=== PATIENT | female | born 1935 | race Caucasian/White ===

== ENCOUNTER 2018-08-31 17:56 | Inpatient (IN) ==
[2018-08-31] MEDS ORDERED: ASPIRIN 325 MG TABLET PO STA (19:53)
[2018-08-31] MEDS ORDERED: ONDANSETRON 4 MG/2 ML VIAL IV STA (19:53)
[2018-08-31 21:23] LABS: Basophils # 0.1 10*3/uL (0.0-0.2); Eosinophils # 0.2 10*3/uL (0.0-0.87); Hematocrit 36.9 VOL% (35.7-47.0); Hemoglobin 11.9 GM/DL (12.0-16.0); Immature Granulocytes % 0.5 %; Immature Granulocytes Absolute 0.03 #; Lymphocytes # 1.7 10*3/uL (1.4-4.0); Lymphocytes % 26.5 % (21.3-54.2); Mean Corpuscular HGB Conc 32.2 GM/DL (32-36); Mean Corpuscular Volume 95.6 FL (87-102); Mean Platelet Volume 12.1 FL (9.6-12.0); Monocytes % 9.6 % (1.7-12.7); Neutrophils % 59.4 % (38.7-73.9); Platelet Count 245 T/CUMM (130-400); Red Blood Count 3.86 MC/CUMM (3.8-5.5); Red Cell Distribution Width 12.8 % (9.3-17.3); White Blood Count 6.3 T/CUMM (4-12)
[2018-08-31 21:44] LABS: INR 0.9; PT Patient Result 9.7 SECS; Partial Thromboplastin Time 24.2 SECS (0-40)
[2018-08-31] MEDS ORDERED: CLOPIDOGREL 75 MG TABLET PO STA (21:47)
[2018-08-31 22:22] LABS: Calcium 8.8 MG/DL (8.5-10.1)
[2018-08-31 22:24] LABS: Albumin 3.5 G/DL (3.4-5.0); Blood Urea Nitrogen 22 MG/DL (7-18); Glucose 101 MG/DL (74-106); Osmolality,Calculated 288.8 MOS/KG (273-304)
[2018-08-31 22:27] LABS: Alanine Aminotransferase 22 U/L (13-56); Aspartate Amino Transferase 18 U/L (0-37)
[2018-08-31 22:30] LABS: Alkaline Phosphatase 87 U/L (45-117)
[2018-08-31] MEDS ORDERED: MORPHINE 4 MG/1 ML VIAL IV PRN (22:44)
[2018-08-31] MEDS ORDERED: ONDANSETRON 4 MG/2 ML VIAL IV PRN (22:44)
[2018-08-31] MEDS ORDERED: NICOTINE 21 MG/24 HR PATCH TRANSDERM PRN (22:44)
[2018-08-31] MEDS ORDERED: ACETAMINOPHEN 325 MG TABLET PO PRN (22:44)
[2018-09-01 00:49] LABS: Risk Ratio 3.67; Thyroid Stimulating Hormone 1.89 uIU/ml (0.358-3.74); VLDL CHOLESTEROL 31.8 MG/DL
[2018-09-01] MEDS: POTASSIUM CHLORIDE RIDER 10 MEQ in PREMIX 1 EACH IV PRN ×4 (00:55→04:07)
[2018-09-01 05:41] LABS: Basophils # 0.1 10*3/uL (0.0-0.2); Basophils % 0.7 % (0.0-0.8); Eosinophils # 0.1 10*3/uL (0.0-0.87); Eosinophils % 1.1 % (0.00-10.9); Hematocrit 37.1 VOL% (35.7-47.0); Hemoglobin 12.1 GM/DL (12.0-16.0); Immature Granulocytes % 0.2 %; Immature Granulocytes Absolute 0.02 #; Lymphocytes # 1.3 10*3/uL (1.4-4.0); Lymphocytes % 15.4 % (21.3-54.2); Mean Corpuscular HGB Conc 32.6 GM/DL (32-36); Mean Corpuscular Volume 93.7 FL (87-102); Neutrophils % 76.6 % (38.7-73.9); Platelet Count 214 T/CUMM (130-400); Red Blood Count 3.96 MC/CUMM (3.8-5.5); Red Cell Distribution Width 12.5 % (9.3-17.3); White Blood Count 8.3 T/CUMM (4-12)
[2018-09-01 06:11] LABS: Albumin 3.4 G/DL (3.4-5.0); Bilirubin,Total 1.2 MG/DL (0.2-1.0); Calcium 9.4 MG/DL (8.5-10.1); Osmolality,Calculated 285.1 MOS/KG (273-304); Total Protein 6.6 G/DL (6.4-8.3)
[2018-09-01] MEDS: LETROZOLE 2.5 MG TABLET PO SCH (13:55)
[2018-09-01] MEDS: METOPROLOL SUCCINATE XL 25 MG TABLET PO SCH (13:56)
[2018-09-01] MEDS: PANTOPRAZOLE 40 MG TABLET PO SCH (13:56)
[2018-09-01] MEDS: POTASSIUM CHLORIDE 10 MEQ TABLET PO SCH (13:56)
[2018-09-01] MEDS: hydroCHLOROthiazide 25 MG TABLET PO SCH (13:56)
[2018-09-01] MEDS: ENOXAPARIN 40 MG/0.4 ML SYRINGE SUBCUT SCH (14:47)
[2018-09-01 15:19] LABS: Apearance,Urine CLEAR (Clear); Bilirubin,Urine Negative (Negative); Blood, Urine Negative (Negative); Glucose,Urine (UA) Negative (Negative); Hyaline Casts,Urine 3 /LPF (0-3); Ketones,Urine 20 mg/dL (Negative); Mucus,Urine Occasional /LPF (Occasional); Nitrite,Urine Negative (Negative); Protein,Urine Negative; RBC,Urine <1 /HPF (0-4); Urine Color Yellow (Yellow); Urine Specific Gravity 1.016 (1.001-1.035); Urine Urobilinogen < 2.0 EU/DL (0.2-1.0)
[2018-09-01 15:22] LABS: Barbiturates Screen,Urine Negative (Negative); Benzodiazepines Screen,Urine Negative (Negative); Cannabinoid Screen,Urine Negative (Negative); Opiate Screen,Urine Negative (Negative); Phencyclidine Screen,Urine Negative (Negative)
[2018-09-01] MEDS: DEXT 5% NACL 0.45% KCL 10 MEQ 10 MEQ/1,000 ML BAG IV SCH (18:15)
[2018-09-01 23:18] LABS: ABG Base Excess 1.4 MMOL/L (-2.5-2.5); ABG HCO3 25.6 MMOL/L (20-26); ABG Oxygen Saturation 96.3 % (95-100); ABG PCO2 38.4 MM HG (35-48); ABG PH 7.431 (7.35-7.45); ABG PO2 78.2 MM HG (80-95); ABG TCO2 22.5 MMOL/L (23-27)
[2018-09-02 00:35] LABS: Barbiturates Screen,Urine Negative (Negative); Benzodiazepines Screen,Urine Negative (Negative); Cannabinoid Screen,Urine Negative (Negative); Opiate Screen,Urine Negative (Negative); Phencyclidine Screen,Urine Negative (Negative)
[2018-09-02] MEDS: DEXT 5% NACL 0.45% KCL 10 MEQ 10 MEQ/1,000 ML BAG IV SCH ×2 (04:38→16:04)
[2018-09-02] MEDS ORDERED: hydrALAZINE 20 MG/1 ML VIAL IV ONE (04:48)
[2018-09-02] MEDS ORDERED: ASPIRIN 300 MG SUPP RECTAL SCH (09:00)
[2018-09-02] MEDS: ENOXAPARIN 40 MG/0.4 ML SYRINGE SUBCUT SCH (09:12)
[2018-09-02 11:50] VITALS: BP 139/57
[2018-09-02] MEDS: hydroCHLOROthiazide 25 MG TABLET PO SCH (14:39)
[2018-09-02] MEDS: POTASSIUM CHLORIDE 10 MEQ TABLET PO SCH (14:40)
[2018-09-02] MEDS: PANTOPRAZOLE 40 MG TABLET PO SCH (14:40)
[2018-09-02] MEDS: METOPROLOL SUCCINATE XL 25 MG TABLET PO SCH (14:41)
[2018-09-02] MEDS: LETROZOLE 2.5 MG TABLET PO SCH (14:42)
[2018-09-02] MEDS ORDERED: APIXABAN 2.5 MG TABLET PO SCH (21:00)
[2018-09-02] MEDS ORDERED: ATORVASTATIN 20 MG TABLET PO SCH (21:00)
[2018-09-02] MEDS ORDERED: ATORVASTATIN 40 MG TABLET PO SCH (21:00)
== END 2018-09-02 16:14 | DRG 65 ==
LOC: N.EDINP 17:56 → N.ED 17:56 → N.2E 23:32
PROVIDERS: ADMIT Internal Medicine; ATTEND Internal Medicine

== ENCOUNTER 2020-04-19 18:24 | Inpatient (IN) ==
[2020-04-19 20:44] LABS: Basophils % 0.6 % (0.0-0.8); Eosinophils # 0.1 10*3/uL (0.0-0.87); Eosinophils % 1.2 % (0.00-10.9); Hematocrit 24.1 VOL% (35.7-47.0); Hemoglobin 7.1 GM/DL (12.0-16.0); Immature Granulocytes % 0.4 %; Immature Granulocytes Absolute 0.03 #; Lymphocytes # 1.6 10*3/uL (1.4-4.0); Mean Corpuscular HGB Conc 29.5 GM/DL (32-36); Mean Corpuscular Volume 86.1 FL (87-102); Mean Platelet Volume 11.2 FL (9.6-12.0); Monocytes % 10.2 % (1.7-12.7); Neutrophils % 63.6 % (38.7-73.9); Platelet Count 371 T/CUMM (130-400); Red Cell Distribution Width 15.2 % (9.3-17.3); White Blood Count 6.8 T/CUMM (4-12)
[2020-04-19 20:56] LABS: PT Patient Result 10.3 SECS (9.8-11.9); Partial Thromboplastin Time 22.7 SECS (23.9-33.8)
[2020-04-19 21:11] LABS: Alanine Aminotransferase 20 U/L (13-56); Albumin 2.9 G/DL (3.4-5.0); Alkaline Phosphatase 112 U/L (45-117); Aspartate Amino Transferase 20 U/L (0-37); Bilirubin,Total < 0.39 MG/DL (0.2-1.0); Blood Urea Nitrogen 18 MG/DL (7-18); Calcium 8.5 MG/DL (8.5-10.1); Carbon Dioxide 31 MMOL/L (21-32); Estimated Glom Filtration Rate 60 ML/MIN; Glucose 88 MG/DL (74-106); Osmolality,Calculated 283.1 MOS/KG (273-304); Potassium 2.8 MMOL/L (3.5-5.1); Sodium 142 MMOL/L (136-145); Total Protein 6.4 G/DL (6.4-8.3)
[2020-04-19] MEDS ORDERED: diphenhydrAMINE 50 MG/1 ML VIAL IV STA (22:14)
[2020-04-19] MEDS ORDERED: DEXAMETHASONE 4 MG/1 ML VIAL IV STA (22:14)
[2020-04-19] MEDS ORDERED: SODIUM CHLORIDE 0.9% 1,000 ML IV STA (22:14)
[2020-04-20] MEDS ORDERED: DEXTROSE 50% 25 GM/50 ML VIAL IV PRN (01:24)
[2020-04-20] MEDS ORDERED: GLUCAGON 1 MG VIAL IM PRN (01:24)
[2020-04-20] MEDS ORDERED: CALCIUM CARBONATE CHEW 500 MG TABLET PO PRN (01:24)
[2020-04-20] MEDS ORDERED: ACETAMINOPHEN 325 MG TABLET PO PRN (01:24)
[2020-04-20] MEDS ORDERED: ONDANSETRON 4 MG/2 ML VIAL IV PRN (01:24)
[2020-04-20] MEDS ORDERED: SODIUM CHLORIDE 0.9% 1,000 ML IV PRN (01:33)
[2020-04-20] MEDS ORDERED: FUROSEMIDE 40 MG/4 ML VIAL IV ONE (07:13)
[2020-04-20 07:51] LABS: Albumin 2.6 G/DL (3.4-5.0); Bilirubin,Total 0.6 MG/DL (0.2-1.0); Calcium 8.2 MG/DL (8.5-10.1); Potassium 3.1 MMOL/L (3.5-5.1)
[2020-04-20] MEDS ORDERED: PANTOPRAZOLE 40 MG TABLET PO SCH (09:00)
[2020-04-20 09:33] LABS: Hematocrit 32.8 VOL% (35.7-47.0); Hemoglobin 10.1 GM/DL (12.0-16.0)
[2020-04-20] MEDS ORDERED: POTASSIUM CHLORIDE 20 MEQ TABLET PO ONE (10:57)
[2020-04-20 15:06] LABS: Hematocrit 31.2 VOL% (35.7-47.0); Hemoglobin 9.2 GM/DL (12.0-16.0)
[2020-04-20] MEDS: PANTOPRAZOLE 40 MG VIAL IV SCH (20:56)
[2020-04-20 21:48] LABS: Hemoglobin 8.6 GM/DL (12.0-16.0)
[2020-04-21 06:05] LABS: Hematocrit 26.6 VOL% (35.7-47.0)
[2020-04-21 06:09] LABS: Basophils % 0.3 % (0.0-0.8); Eosinophils % 0.2 % (0.00-10.9); Hematocrit 25.6 VOL% (35.7-47.0); Immature Granulocytes % 0.4 %; Immature Granulocytes Absolute 0.04 #; Lymphocytes # 1.1 10*3/uL (1.4-4.0); Lymphocytes % 11.6 % (21.3-54.2); Mean Corpuscular HGB Conc 31.3 GM/DL (32-36); Mean Corpuscular Volume 84.2 FL (87-102); Mean Platelet Volume 11.3 FL (9.6-12.0); Monocytes % 7.9 % (1.7-12.7); Neutrophils % 79.6 % (38.7-73.9); Platelet Count 311 T/CUMM (130-400); Red Blood Count 3.04 MC/CUMM (3.8-5.5); Red Cell Distribution Width 15.2 % (9.3-17.3); White Blood Count 9.7 T/CUMM (4-12)
[2020-04-21 06:30] LABS: % Iron Saturation 5.7 % (18-50); Ferritin 6.9 ng/ml (8-252)
[2020-04-21] MEDS: PANTOPRAZOLE 40 MG VIAL IV SCH ×2 (08:49→20:22)
[2020-04-21 10:35] LABS: Hematocrit 29.1 VOL% (35.7-47.0); Hemoglobin 8.8 GM/DL (12.0-16.0)
[2020-04-21 18:22] LABS: Hematocrit 30.1 VOL% (35.7-47.0)
[2020-04-21] MEDS: ATORVASTATIN 20 MG TABLET PO SCH (22:06)
[2020-04-21] MEDS: carvediloL 3.125 MG TABLET PO SCH (22:06)
[2020-04-22 02:27] LABS: Hematocrit 25.4 VOL% (35.7-47.0); Hemoglobin 7.8 GM/DL (12.0-16.0)
[2020-04-22 06:12] LABS: Basophils % 0.5 % (0.0-0.8); Eosinophils # 0.1 10*3/uL (0.0-0.87); Eosinophils % 1.8 % (0.00-10.9); Hematocrit 26.8 VOL% (35.7-47.0); Hemoglobin 7.8 GM/DL (12.0-16.0); Immature Granulocytes % 0.5 %; Immature Granulocytes Absolute 0.04 #; Lymphocytes # 1.9 10*3/uL (1.4-4.0); Lymphocytes % 24.1 % (21.3-54.2); Mean Corpuscular HGB Conc 29.1 GM/DL (32-36); Mean Platelet Volume 11.8 FL (9.6-12.0); Monocytes % 8.8 % (1.7-12.7); Neutrophils % 64.3 % (38.7-73.9); Platelet Count 323 T/CUMM (130-400); Red Blood Count 3.08 MC/CUMM (3.8-5.5); Red Cell Distribution Width 15.4 % (9.3-17.3); White Blood Count 7.8 T/CUMM (4-12)
[2020-04-22 06:47] LABS: Calcium 8.4 MG/DL (8.5-10.1); Osmolality,Calculated 292.6 MOS/KG (273-304); Potassium 3.1 MMOL/L (3.5-5.1)
[2020-04-22] MEDS ORDERED: POTASSIUM CHLORIDE 20 MEQ TABLET PO PRN (07:28)
[2020-04-22] MEDS ORDERED: POTASSIUM CHLORIDE RIDER 10 MEQ in PREMIX 1 EACH IV PRN (07:28)
[2020-04-22] MEDS: PANTOPRAZOLE 40 MG VIAL IV SCH ×2 (09:10→21:24)
[2020-04-22] MEDS: LACTATED RINGERS 1,000 ML IV SCH (10:15)
[2020-04-22] MEDS ORDERED: METOPROLOL TARTRATE 5 MG/5 ML VIAL IV ONE (10:43)
[2020-04-22] MEDS ORDERED: LABETALOL 20 MG/4 ML SYRINGE IV ONE (10:44)
[2020-04-22] MEDS ORDERED: propofoL 200 MG/20 ML VIAL IV ONE (12:32)
[2020-04-22] MEDS ORDERED: LIDOCAINE 2% 5 ML VIAL ONE (12:32)
[2020-04-22 14:37] LABS: Hematocrit 33.9 VOL% (35.7-47.0)
[2020-04-22] MEDS: carvediloL 3.125 MG TABLET PO SCH ×2 (14:44→21:24)
[2020-04-22 14:51] LABS: Hemoglobin 10.1 GM/DL (12.0-16.0)
[2020-04-22] MEDS: ATORVASTATIN 20 MG TABLET PO SCH (23:05)
[2020-04-23 07:45] LABS: Basophils % 0.4 % (0.0-0.8); Eosinophils # 0.2 10*3/uL (0.0-0.87); Eosinophils % 2.2 % (0.00-10.9); Hematocrit 34.2 VOL% (35.7-47.0); Hemoglobin 10.3 GM/DL (12.0-16.0); Immature Granulocytes % 0.5 %; Immature Granulocytes Absolute 0.04 #; Lymphocytes # 1.1 10*3/uL (1.4-4.0); Mean Corpuscular HGB Conc 30.1 GM/DL (32-36); Mean Corpuscular Volume 88.1 FL (87-102); Mean Platelet Volume 11.3 FL (9.6-12.0); Monocytes % 8.9 % (1.7-12.7); Platelet Count 280 T/CUMM (130-400); Red Blood Count 3.88 MC/CUMM (3.8-5.5); Red Cell Distribution Width 14.9 % (9.3-17.3); White Blood Count 8.1 T/CUMM (4-12)
[2020-04-23 08:17] LABS: Albumin 2.6 G/DL (3.4-5.0); Bilirubin,Total 0.6 MG/DL (0.2-1.0); Calcium 8.9 MG/DL (8.5-10.1); Osmolality,Calculated 276.5 MOS/KG (273-304); Potassium 3.8 MMOL/L (3.5-5.1); Total Protein 6.2 G/DL (6.4-8.3)
[2020-04-23] MEDS: LACTATED RINGERS 1,000 ML IV SCH (08:47)
[2020-04-23] MEDS: PANTOPRAZOLE 40 MG VIAL IV SCH (08:48)
[2020-04-23] MEDS: carvediloL 3.125 MG TABLET PO SCH (08:48)
[2020-04-23 09:46] VITALS: BP 177/72
== END 2020-04-23 15:53 | disposition home health service (06) | DRG 813 ==
LOC: N.ED 18:24 → N.EDINP 04-20 01:24 → SUATTDRO 04-20 01:24 → N.4E 04-20 03:28
PROVIDERS: ADMIT Internal Medicine; ATTEND Internal Medicine